=== PATIENT | male | born 1965 | race Caucasian/White ===

== ENCOUNTER 2017-08-14 12:45 | Emergency (ER) | payer OTHER ==
[2017-08-14] MEDS ORDERED: Aspirin Low Dose CHEW TAB* 81 MG PO ONE (12:54)
[2017-08-14 13:34] LABS: Hematocrit 45 % (42-52); Hemoglobin 15.7 g/dl (14.0-18.0); Mean Corpuscular HGB Conc 35 g/dl (31-36); Mean Corpuscular Hemoglobin 32 pg (27-31); Mean Corpuscular Volume 92 fL (80-94); Mean Platelet Volume 7 um3 (7.4-10.4); Red Blood Count 4.87 10^6/ul (4.0-5.4); Red Cell Distribution Width 13 % (10.5-15); White Blood Count 6.6 10^3/ul (3.5-10.8)
[2017-08-14 13:48] LABS: Albumin 4.2 g/dL (3.2-5.2); Calcium 9.2 mg/dL (8.6-10.3); EGFR African American 106.2 (>60); EGFR Non-African American 82.6 (>60); Globulin 2.7 g/dL (2-4); Potassium 3.7 mmol/L (3.5-5.0); Total Protein 6.9 g/dL (6.4-8.9)
[2017-08-14 13:51] LABS: Troponin I 0.01 ng/mL (<0.04)
--- NOTE | 2017-08-14 14:03 | RAD ---
HISTORY: Chest pain COMPARISONS: None VIEWS: 1: frontal portable view of the chest at 1:40 PM FINDINGS: LINES AND TUBES: None. CARDIOMEDIASTINAL SILHOUETTE: The cardiomediastinal silhouette is normal for portable technique. PLEURA: The costophrenic angles are sharp. No pleural abnormalities are noted. LUNG PARENCHYMA: The lungs are clear. ABDOMEN: The upper abdomen is clear. There is no subphrenic gas. BONES AND SOFT TISSUES: No bone or soft tissue abnormalities are noted. IMPRESSION: NO ACTIVE CARDIOPULMONARY DISEASE.
[2017-08-14] MEDS ORDERED: Ketorolac INJ* 30 MG/ML 1 ML VIAL IV PUSH ONE (16:29)
[2017-08-14] MEDS ORDERED: Lisinopril TAB* 10 MG PO ONE (16:43)
[2017-08-14] MEDS ORDERED: Hydrochlorothiazide TAB* 25 MG PO ONE (16:43)
[2017-08-14] MEDS ORDERED: amLODIPine TAB* 5 MG PO ONE (16:43)
[2017-08-14 16:48] VITALS: BP 168/78
--- NOTE | 2017-08-16 08:07 | ED ---
Carl Jenkins Angela, scribed for Keyon Montoya MD on 08/14/17 at 1302 . HPI Chest Pain - HPI Summary HPI Summary: This pt is a 52 y/o male presenting to [facility] via EMS from [facility] c/o mid sternal chest pain that began at approximately 0930 today. Pt reports his chest pain radiates down his right arm, right leg, and mid back. He states his pain began while he was at rest reading. Pt additionally c/o nausea, headache, dizziness. Pt reports having chest pain before but not like this. He denies SOB, chills, fever, vomiting. PMHx includes asthma, HTN, seizure. Pt is currently on Keppra. - History of Current Complaint Chief Complaint: EDChestPainROMI Time Seen by Provider: 08/14/17 12:54 Hx Obtained From: Patient Onset/Duration: Started Hours Ago Timing: Constant, Lasting Hours Current Severity: Severe Pain Intensity: 9 Pain Scale Used: 0-10 Numeric Chest Pain Location: Mid Sternal Chest Pain Radiates: Yes Chest Pain Radiates To:: Back - mid, Arm - right, Other - right leg Associated Signs and Symptoms: Positive: Chest Pain, Headaches, Dizziness, Nausea. Negative: Shortness of Breath, Fever, Chills, Vomiting - Allergy/Home Medications Allergies/Adverse Reactions: Allergies Allergy/AdvReac Type Severity Reaction Status Date / Time Fish Allergy Allergy Unknown Verified 08/14/17 13:07 Reaction Details Penicillins [PCN] Allergy Unknown Verified 08/14/17 13:07 Reaction Details Home Medications: Home Medications Albuterol HFA INHALER* [Ventolin HFA Inhaler*] 2 puff INH Q4H PRN 08/14/17 [ History Confirmed 08/14/17] Aspirin EC Low Dose* [Ecotrin EC Low Dose 81 MG*] 81 mg PO DAILY 08/14/17 [ History Confirmed 08/14/17] Atorvastatin* [Lipitor*] 20 mg PO DAILY 08/14/17 [History Confirmed 08/14/17] Carvedilol TAB* [Coreg TAB*] 25 mg PO BID 08/14/17 [History Confirmed 08/14/17] Doxazosin TAB* [Cardura TAB*] 1 mg PO BID 08/14/17 [History Confirmed 08/14/17] Hydrochlorothiazide TAB* [Hydrodiuril TAB*] 25 mg PO DAILY 08/14/17 [History Confirmed 08/14/17] Ibuprofen TAB* [Motrin TAB* 600 MG] 600 mg PO TID PRN 08/14/17 [History Confirmed 08/14/17] Ketoconazole 2 % CREAM (NF) [Nizoral 2% CREAM (NF)] 1 applic TOPICAL .TWICE A WEEK 08/14/17 [History Confirmed 08/14/17] Lisinopril TAB* [Prinivil TAB*] 20 mg PO BID 08/14/17 [History Confirmed ] Omeprazole CAP* [Prilosec CAP* 20 MG] 20 mg PO DAILY 08/14/17 [History Confirmed 08/14/17] Selsun Lotion 1 top.lotion TOPICAL .THREE TIMES A WEEK 08/14/17 [History Confirmed 08/14/17] amLODIPine TAB* [Norvasc 5 mg TAB*] 5 mg PO DAILY 08/14/17 [History Confirmed ] levETIRAcetam TAB* [Keppra TAB*] 1,000 mg PO BID 08/14/17 [History Confirmed 01/24] PMH/Surg Hx/FS Hx/Imm Hx Endocrine/Hematology History: Denies: Hx Diabetes Cardiovascular History: Reports: Hx Hypertension Respiratory History: Reports: Hx Asthma Neurological History: Reports: Hx Seizures - Surgical History Surgery Procedure, Year, and Place: Tonsillectomy Infectious Disease History: No Infectious Disease History: Denies: Traveled Outside the [place] in Last 30 Days - Family History Known Family History: Positive: Cardiac Disease - Mother: fatal [place] Negative: Hypertension, Diabetes - Social History Alcohol Use: None Substance Use Type: Reports: None Smoking Status (MU): Former Smoker - quit date 1999 Review of Systems Negative: Fever, Chills Eyes: Negative ENT: Negative Positive: Chest Pain Negative: Shortness Of Breath Positive: Nausea. Negative: Vomiting Musculoskeletal: Other - right arm pain, right leg pain Skin: Negative Neurological: Other - dizziness Positive: Headache All Other Systems Reviewed And Are Negative: Yes Physical Exam - Summary Physical Exam Summary: VITAL SIGNS: Reviewed. GENERAL: Patient is a well-developed and nourished male who is lying comfortable in the stretcher. Patient is not in any acute respiratory distress. HEAD AND FACE: No signs of trauma. No ecchymosis, hematomas or skull depressions. No sinus tenderness. EYES: PERRLA, EOMI x 2, No injected conjunctiva, no nystagmus. EARS: Hearing grossly intact. Ear canals and tympanic membranes are within normal limits. MOUTH: Oropharynx within normal limits. NECK: Supple, trachea is midline, no adenopathy, no JVD, no carotid bruit, no c- spine tenderness, neck with full ROM. CHEST: Symmetric, no tenderness at palpation LUNGS: Clear to auscultation bilaterally. No wheezing or crackles. CVS: Regular rate and rhythm, S1 and S2 present, no murmurs or gallops appreciated. ABDOMEN: Soft, non-tender. No signs of distention. No rebound no guarding, and no masses palpated. Bowel sounds are normal. EXTREMITIES: FROM in all major joints, no edema, no cyanosis or clubbing. NEURO: Alert and oriented x 3. No acute neurological deficits. Speech is normal and follows commands. SKIN: Dry and warm Triage Information Reviewed: Yes Vital Signs On Initial Exam: Initial Vitals Temp Pulse Resp BP Pulse Ox 98.9 F 86 24 169/99 95 08/14/17 12:46 08/14/17 12:46 08/14/17 12:46 08/14/17 12:46 08/14/17 12:46 Vital Signs Reviewed: Yes Diagnostics - Vital Signs Vital Signs Temp Pulse Resp BP Pulse Ox 08/14/17 12:46 98.9 F 86 24 169/99 95 - Laboratory Lab Results: Lab Results 08/14/17 08/14/17 08/14/17 Range/Units 13:23 13:23 13:23 WBC 6.6 (3.5-10.8) 10^3/ul RBC 4.87 (4.0-5.4) 10^6/ul Hgb 15.7 (14.0-18.0) g/dl Hct 45 (42-52) % MCV 92 (80-94) fL MCH 32 H (27-31) pg MCHC 35 (31-36) g/dl RDW 13 (10.5-15) % Plt Count 196 (150-450) 10^3/ul MPV 7 L (7.4-10.4) um3 Neut % (Auto) 65.4 (38-83) % Lymph % (Auto) 22.0 L (25-47) % [place] % (Auto) 9.0 (1-9) % Eos % (Auto) 2.2 (0-6) % Baso % (Auto) 1.4 (0-2) % Absolute Neuts (auto) 4.3 (1.5-7.7) 10^3/ul Absolute Lymphs (auto) 1.4 (1.0-4.8) 10^3/ul Absolute Monos (auto) 0.6 (0-0.8) 10^3/ul Absolute Eos (auto) 0.1 (0-0.6) 10^3/ul Absolute Basos (auto) 0.1 (0-0.2) 10^3/ul Absolute Nucleated RBC 0.01 10^3/ul Nucleated RBC % 0.1 INR (Anticoag Therapy) 0.98 (0.77-1.02) APTT 27.6 (26.0-36.3) seconds Sodium 137 (133-145) mmol/L Potassium 3.7 (3.5-5.0) mmol/L Chloride 102 (101-111) mmol/L Carbon Dioxide 29 (22-32) mmol/L Anion Gap 6 (2-11) mmol/L BUN 19 (6-24) mg/dL Creatinine 0.95 (0.67-1.17) mg/dL Est GFR ( Amer) 106.2 (>60) Est GFR (Non-Af Amer) 82.6 (>60) BUN/Creatinine Ratio 20.0 (8-20) Glucose 90 (70-100) mg/dL Lactic Acid (0.5-2.0) mmol/L Calcium 9.2 (8.6-10.3) mg/dL Total Bilirubin 1.00 (0.2-1.0) mg/dL AST 27 (13-39) U/L ALT 26 (7-52) U/L Alkaline Phosphatase 49 (34-104) U/L Troponin I 0.01 (<0.04) ng/mL Total Protein 6.9 (6.4-8.9) g/dL Albumin 4.2 (3.2-5.2) g/dL Globulin 2.7 (2-4) g/dL Albumin/Globulin Ratio 1.6 (1-3) 08/14/17 08/14/17 Range/Units 13:23 16:05 WBC (3.5-10.8) 10^3/ul RBC (4.0-5.4) 10^6/ul Hgb (14.0-18.0) g/dl Hct (42-52) % MCV (80-94) fL MCH (27-31) pg MCHC (31-36) g/dl RDW (10.5-15) % Plt Count (150-450) 10^3/ul MPV (7.4-10.4) um3 Neut % (Auto) (38-83) % Lymph % (Auto) (25-47) % [place] % (Auto) (1-9) % Eos % (Auto) (0-6) % Baso % (Auto) (0-2) % Absolute Neuts (auto) (1.5-7.7) 10^3/ul Absolute Lymphs (auto) (1.0-4.8) 10^3/ul Absolute Monos (auto) (0-0.8) 10^3/ul Absolute Eos (auto) (0-0.6) 10^3/ul Absolute Basos (auto) (0-0.2) 10^3/ul Absolute Nucleated RBC 10^3/ul Nucleated RBC % INR (Anticoag Therapy) (0.77-1.02) APTT (26.0-36.3) seconds Sodium (133-145) mmol/L Potassium (3.5-5.0) mmol/L Chloride (101-111) mmol/L Carbon Dioxide (22-32) mmol/L Anion Gap (2-11) mmol/L BUN (6-24) mg/dL Creatinine (0.67-1.17) mg/dL Est GFR ( Amer) (>60) Est GFR (Non-Af Amer) (>60) BUN/Creatinine Ratio (8-20) Glucose (70-100) mg/dL Lactic Acid 1.0 (0.5-2.0) mmol/L Calcium (8.6-10.3) mg/dL Total Bilirubin (0.2-1.0) mg/dL AST (13-39) U/L ALT (7-52) U/L Alkaline Phosphatase (34-104) U/L Troponin I 0.00 (<0.04) ng/mL Total Protein (6.4-8.9) g/dL Albumin (3.2-5.2) g/dL Globulin (2-4) g/dL Albumin/Globulin Ratio (1-3) Result Diagrams: 08/14/17 13:23 08/14/17 13:23 Lab Statement: Any lab studies that have been ordered have been reviewed, and results considered in the medical decision making process. - Radiology Chest XR Xray Interpretation: No Acute Changes - IMPRESSION: No active cardiopulmonary disease. ED physician has reviewed this radiology report and agrees. Radiology Interpretation Completed By: Radiologist - EKG 1301 Cardiac Rate: NL EKG Rhythm: Sinus Rhythm - at 84 bpm EKG Interpretation: No ST elevation. Normal axis. Re-Evaluation - Re-Evaluation First Eval Re-Evaluation Time: 16:30 Comment: I reviewed the XR and lab results with the pt. Chest Pain Course/Dx - Course Assessment/Plan: This pt is a 52 y/o male presenting to [facility] via EMS from [facility] c/o mid sternal chest pain that began at approximately 0930 today. Pt reports his chest pain radiates down his right arm , right leg, and mid back. He states his pain began while he was at rest reading. Pt additionally c/o nausea, headache, dizziness. Pt reports having chest pain before but not like this. He denies SOB, chills, fever, vomiting. PMHx includes asthma, HTN, seizure. Pt is currently on Keppra. Test results without any significant abnormalities. Troponin 1 is 0.01 and 4 hours later, troponin 2, is 0.00. Chest XR shows no active cardiopulmonary disease. Pt is hungry and is currently eating in the ED without any nausea or vomiting. Chest XR shows no active cardiopulmonary disease is noted. I believe the pt is not having an acute coronary syndrome. I have no suspicion for PE, since the pt is not hypoxic or tachycardic. Therefore, he will be discharged to [facility] with follow up from his PCP. Pt is hemodynamically stable , alert and oriented x3. - Chest Pain Differential Diagnosis/HQI/PQRI: Acute [place], ACS, Angina, CHF, Chest Wall, GI Disease, Lower Respiratory Infection - Diagnoses Provider Diagnoses: Atypical chest pain Discharge - Discharge Plan Condition: Stable Disposition: HOME Patient Education Materials: Chest Pain (ED) Referrals: Anthony MEZA,Eunice Dawn [Primary Care Provider] - Additional Instructions: Please follow up with your primary care provider. RETURN TO THE ED FOR ANY WORSENING OR NEW SYMPTOMS. The documentation as recorded by the Carl kline Angela accurately reflects the service I personally performed and the decisions made by Jan young Walter, MD.
== END 2017-08-14 16:47 | disposition home or self-care (01) ==
LOC: ED 12:45
DX: R07.89 Other chest pain (principal); R51 Headache; R42 Dizziness and giddiness; R11.0 Nausea; Z87.891 Personal history of nicotine dependence
CPT/HCPCS: 36415; 71010; 80053; 83605; 84484; 85025; 85610; 85730; 93005; 96374; 99283; A9270-GY; J1885